=== PATIENT | female | born 1975 | race Caucasian/White ===

== ENCOUNTER 2017-09-05 22:11 | Emergency (ER) | payer OTHER ==
[2017-09-05] MEDS ORDERED: HYDROcodone/APAP 5/325MG 1 TAB TABLET PO (23:00)
[2017-09-05] MEDS ORDERED: HYDROcodone/APAP 5/325MG 1 TAB TABLET (23:03)
[2017-09-05] MEDS: oxyCODONE/APAP 5/325 1 TAB TABLET PO (23:15)
== END 2017-09-06 00:34 | disposition home or self-care (01) ==
LOC: ER 22:11
DX: S93.401A Sprain of unspecified ligament of right ankle, initial encounter (principal); Z88.1 Allergy status to other antibiotic agents; Z88.5 Allergy status to narcotic agent; Z88.8 Allergy status to other drugs, medicaments and biological substances; X50.9XXA Other and unspecified overexertion or strenuous movements or postures, initial encounter; Y93.89 Activity, other specified; Y99.8 Other external cause status; Y92.89 Other specified places as the place of occurrence of the external cause
CPT/HCPCS: 73610; 99284